=== PATIENT | male | born 1960 | race Caucasian/White ===

== ENCOUNTER → 2017-10-03 | Outpatient (CLI) | payer OTHER ==
[~2017-10-03] MED LIST: ASPIRIN ADULT L81 M3 PO; BENICAR20 MG PO; FISH OIL 1000MG1 CAP PO; MULTI-VITAMINS1 TA1 PO
[2017-10-03 07:23] LABS: BUN/CREATININE RATIO 20.5 (6.0-26.0); CALCIUM 9.5 mg/dL (8.4-10.2); POTASSIUM 4.2 mmol/L (3.6-5.0); TOTAL BILIRUBIN 1.4 mg/dL (0.2-1.3); TOTAL PROTEIN 7.2 g/dL (6.3-8.2)
== END ==
LOC: LAB 06:54
PROVIDERS: Family Medicine
DX: Z80.42 Family history of malignant neoplasm of prostate (principal); I10 Essential (primary) hypertension

== ENCOUNTER → 2017-10-13 | Outpatient (CLI) | payer OTHER ==
[~2017-10-13] VITALS: Ht 180.3 cm; Wt 111.4 kg
[2017-10-13 09:50] VITALS: BP 143/90
--- NOTE | 2017-10-13 10:00 | NUR ---
Dr. Anderson notified of EKG. Patient returns to the clinic with Dr. Anderson. Steady gait noted.
== END ==
LOC: AMSURD 09:41
DX: I10 Essential (primary) hypertension (principal); I49.9 Cardiac arrhythmia, unspecified; I48.91 Unspecified atrial fibrillation; R00.0 Tachycardia, unspecified

== ENCOUNTER → 2018-07-06 | Outpatient (CLI) | payer OTHER ==
[2017-10-13 09:50] VITALS: BP 143/90
== END ==
LOC: RAD 11:15
DX: Z87.81 Personal history of (healed) traumatic fracture (principal); M79.604 Pain in right leg

== ENCOUNTER 2018-08-08 15:00 | Outpatient (RCR) | payer OTHER ==
[2017-10-13 09:50] VITALS: BP 143/90
== END 2018-08-08 15:30 | disposition home or self-care (01) ==
LOC: PT 15:00
DX: M25.562 Pain in left knee (principal); Y93.39 Activity, other involving climbing, rappelling and jumping off; Y92.812 Truck as the place of occurrence of the external cause

== ENCOUNTER → 2018-10-03 | Outpatient (CLI) | payer OTHER ==
[2017-10-13 09:50] VITALS: BP 143/90
[2018-10-03 07:28] LABS: ALBUMIN 4.2 g/dL (3.5-5.0); CALCIUM 9.3 mg/dL (8.4-10.2); POTASSIUM 4.4 mmol/L (3.6-5.0); TOTAL BILIRUBIN 1.2 mg/dL (0.2-1.3); TOTAL PROTEIN 7.1 g/dL (6.3-8.2)
== END ==
LOC: LAB 06:59
PROVIDERS: Family Medicine
DX: I10 Essential (primary) hypertension (principal); Z80.42 Family history of malignant neoplasm of prostate

== ENCOUNTER → 2018-10-11 | Outpatient (CLI) | payer OTHER ==
[2017-10-13 09:50] VITALS: BP 143/90
== END ==
LOC: LAB 11:51
DX: R73.9 Hyperglycemia, unspecified (principal)

== ENCOUNTER → 2019-10-10 | Outpatient (CLI) | payer BC ==
[2017-10-13 09:50] VITALS: BP 143/90
[2019-10-10 07:19] LABS: POTASSIUM 4.2 mmol/L (3.5-5.1)
[2019-10-10 07:20] LABS: CALCIUM 9.1 mg/dL (8.3-10.5)
== END ==
LOC: LAB 07:01
PROVIDERS: Family Medicine
DX: Z23 Encounter for immunization (principal); I10 Essential (primary) hypertension; N52.9 Male erectile dysfunction, unspecified

== ENCOUNTER → 2019-10-28 | Outpatient (CLI) | payer BC ==
[2017-10-13 09:50] VITALS: BP 143/90
== END ==
LOC: LAB 07:11
DX: N52.9 Male erectile dysfunction, unspecified (principal); E29.1 Testicular hypofunction

== ENCOUNTER 2020-09-24 17:04 | Emergency (ER) | payer OTHER, BC ==
[~2020-09-24] VITALS: Ht 180.3 cm; Wt 118.2 kg
[~2020-09-24 17:04] MED LIST changes: -ASPIRIN ADULT L81 M3 PO; +ASPIRIN E.C. 8181 MG PO; -MULTI-VITAMINS1 TA1 PO; +NATURE'S BLEND1 TA6 PO
[2020-09-24] MEDS ORDERED: FLECAINIDE ACE100 MG PO (17:22)
[2020-09-24] MEDS ORDERED: ELIQUIS5 MG PO (17:23)
[2020-09-24] MEDS ORDERED: TOPROL XL100 MG PO (17:23)
[2020-09-24] MEDS ORDERED: OCUVITE TABLET1 TAB PO (17:24)
[2020-09-24] MEDS ORDERED: PREDNISOLONE ACE5 M4 (17:25)
[2020-09-24] MEDS ORDERED: CEPHALEXIN500 M1 PO ×2 (18:59→19:12)
[2020-09-24 19:24] VITALS: BP 145/68
== END 2020-09-24 19:24 | disposition home or self-care (01) ==
LOC: ED 17:04
DX: S81.012A Laceration without foreign body, left knee, initial encounter (principal); S40.022A Contusion of left upper arm, initial encounter; I10 Essential (primary) hypertension; I48.91 Unspecified atrial fibrillation; F17.290 Nicotine dependence, other tobacco product, uncomplicated; Z23 Encounter for immunization; Z79.82 Long term (current) use of aspirin; Z79.01 Long term (current) use of anticoagulants; W18.09XA Striking against other object with subsequent fall, initial encounter; Y99.0 Civilian activity done for income or pay
CPT/HCPCS: 90715

== ENCOUNTER 2020-09-25 08:48 | Emergency (ER) | payer OTHER, BC ==
[~2020-09-25 08:48] MED LIST changes: +CEPHALEXIN500 M1 PO; +ELIQUIS5 MG PO; +FLECAINIDE ACE100 MG PO; +OCUVITE TABLET1 TAB PO; +PREDNISOLONE ACE5 M4; +TOPROL XL100 MG PO
[2020-09-25 11:12] VITALS: BP 176/89
== END 2020-09-25 11:28 | disposition short-term general hospital (02) ==
LOC: ED 08:48
DX: S81.012A Laceration without foreign body, left knee, initial encounter (principal); S81.042A Puncture wound with foreign body, left knee, initial encounter; Z85.828 Personal history of other malignant neoplasm of skin; Z98.52 Vasectomy status; Z79.82 Long term (current) use of aspirin; W45.8XXA Other foreign body or object entering through skin, initial encounter; W26.8XXA Contact with other sharp object(s), not elsewhere classified, initial encounter; Y99.0 Civilian activity done for income or pay

== ENCOUNTER 2022-04-27 08:03 | Outpatient (RCR) | payer OTHER, BC | END 2022-05-26 | disposition home or self-care (01) | LOC: PT | DX: S46.012D Strain of muscle(s) and tendon(s) of the rotator cuff of left shoulder, subsequent encounter (principal); X58.XXXD Exposure to other specified factors, subsequent encounter ==

== ENCOUNTER 2022-05-31 09:21 | Outpatient (RCR) | payer OTHER, BC | END 2022-06-26 | disposition home or self-care (01) | LOC: PT | DX: S46.012D Strain of muscle(s) and tendon(s) of the rotator cuff of left shoulder, subsequent encounter (principal); X58.XXXD Exposure to other specified factors, subsequent encounter ==

== ENCOUNTER 2022-06-28 07:47 | Outpatient (RCR) | payer OTHER, BC | END 2022-07-27 | disposition home or self-care (01) | LOC: PT | DX: S46.012D Strain of muscle(s) and tendon(s) of the rotator cuff of left shoulder, subsequent encounter (principal); X58.XXXD Exposure to other specified factors, subsequent encounter ==

== ENCOUNTER 2022-07-28 13:34 | Outpatient (RCR) | payer OTHER, BC | END 2022-08-23 14:26 | disposition home or self-care (01) | LOC: PT | DX: S46.012D Strain of muscle(s) and tendon(s) of the rotator cuff of left shoulder, subsequent encounter (principal) ==

== ENCOUNTER → 2022-07-28 | Outpatient (CLI) | payer BC ==
[2022-07-28 08:30] LABS: POTASSIUM 4.5 mmol/L (3.5-5.1)
[2022-07-28 08:31] LABS: ALBUMIN 4.2 g/dL (3.4-4.8)
[2022-07-28 08:32] LABS: CALCIUM 9.1 mg/dL (8.3-10.5)
[2022-07-28 08:33] LABS: TOTAL PROTEIN 7.1 g/dL (6.2-8.1)
[2022-07-28 09:52] LABS: TOTAL BILIRUBIN 1.5 mg/dL (0.2-1.2)
== END ==
LOC: LAB 08:06
PROVIDERS: Family Medicine
DX: Z12.5 Encounter for screening for malignant neoplasm of prostate (principal); I10 Essential (primary) hypertension; E78.00 Pure hypercholesterolemia, unspecified; R73.9 Hyperglycemia, unspecified

== ENCOUNTER → 2022-08-04 | Outpatient (CLI) | payer BC | LOC: LAB 09:37 | DX: Z00.00 Encounter for general adult medical examination without abnormal findings (principal); H54.61 Unqualified visual loss, right eye, normal vision left eye; I10 Essential (primary) hypertension; E78.00 Pure hypercholesterolemia, unspecified; R73.9 Hyperglycemia, unspecified; Z12.5 Encounter for screening for malignant neoplasm of prostate; I48.91 Unspecified atrial fibrillation; Z98.890 Other specified postprocedural states; Z85.828 Personal history of other malignant neoplasm of skin; L98.9 Disorder of the skin and subcutaneous tissue, unspecified ==

== ENCOUNTER → 2023-12-19 | Outpatient (CLI) | payer BC ==
[2023-12-19 14:25] LABS: CALCIUM 9.9 mg/dL (8.3-10.5)
== END ==
LOC: LAB 13:59
PROVIDERS: Family Medicine
DX: Z12.5 Encounter for screening for malignant neoplasm of prostate (principal); E11.9 Type 2 diabetes mellitus without complications; I10 Essential (primary) hypertension; E78.2 Mixed hyperlipidemia

== ENCOUNTER → 2024-12-25 | Outpatient (CLI) | payer MEDICARE, BC ==
[2024-12-25 10:06] LABS: CALCIUM 9.9 mg/dL (8.3-10.5)
== END ==
LOC: LAB 09:32
PROVIDERS: Family Medicine
DX: Z12.5 Encounter for screening for malignant neoplasm of prostate (principal); E78.00 Pure hypercholesterolemia, unspecified; E78.2 Mixed hyperlipidemia; E11.9 Type 2 diabetes mellitus without complications; I10 Essential (primary) hypertension